=== PATIENT | female | born 1950 | race Caucasian/White ===

== ENCOUNTER 2025-01-31 13:02 | Outpatient (AMB) | payer MEDICARE, OTHER, SELFPAY ==
--- NOTE | 2025-01-31 13:15 | AMB.GYNCLNOT ---
Vital Signs 01/31/25 13:17 Height 1.6 m Height Method Stated Weight 90.378 kg Weight Measurement Method Standing Scale BMI 35.3 BP 118/71 Blood Pressure Source Automatic Cuff Blood Pressure Location Left Upper Arm Position Sitting Respiration 18 Pulse 71 Pulse Source Monitor Temp 97.2 F Temp Source Oral Pulse Oximetry (%) 97 Oxygen Delivery Method Room Air Allergies/Home Meds Allergies & Medications Allergies No Known Allergies Allergy (Verified 01/31/25 13:18) Medication Reconciliation clobetasol 0.05 % topical ointment 1 applic topical QHS 4 weeks #60 grams 02/02/25 [Rx] conjugated estrogens 0.625 mg/gram vaginal cream 0.3125 mg vaginal QDAY #30 grams 02/02/25 [Rx] Intake Visit Data Collection New Patient or Established: New Patient (never been to [facility]) Reason for Visit:: VAGINAL CONCERNS Seen by Clinical Staff ONLY (RN/MA): No Oxyacetylene Cutter Required: No Do You Feel Safe at Home: Yes Authorities Contacted: N/A PCP or OBGYN visit in last 3 months: No Hx Now: No Are you currently on any form of Control: No Pain Present Currently: No Pain Scale Used: Ruiz-Wang/Numerical Pain scale:: 0 Smoking Status Smoking Status: Never smoker 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 History of brachytherapy+ chemo), Yes Hx Hysterectomy (Dr. Goel. 2019. For uterine cancer.), Yes Psychiatric Problems (Anxiety) and Yes Depression / PP Depression Additional Operations/Hospitalizations (year & reason): Parathyroid removal 2016, anxiety on Xanax depression on zoloft Other Relevant History: x 2, 1972 and 1978 Questionnaires Covid-19 Vaccine Questionnaire Has patient been vacinated for Covid-19 Have you been vacinated for Covid-19: Yes PHQ-9 PHQ-2 Over the last 2 weeks, how often have you been bothered by any of the following problems? 1. Little interest or pleasure in doing things: not at all 2. Feeling down, depressed, or hopeless: not at all Total score: 0 PHQ-9 3. Trouble falling or staying asleep, or sleeping too much: Not at all 4. Feeling tired or having little energy: Not at all 5. Poor appetite or overeating: Not at all 6. Feeling bad about yourself - or that you are a failure or have let yourself or your family down: Not at all 7. Trouble concentrating on things, such as reading the newspaper or watching television: Not at all 8. Moving or speaking so slowly that other people could have noticed? - Or the opposite - being so fidgety or restless that you have been moving around a lot more than usual: not at all 9. Thoughts that you would be better off or of hurting yourself in some way: Not at all Total score: 0 If you checked off any problems, how difficult have these problems made it for you to do your work, take care of things at home, or get along with other people?: not difficult at all Source: Developed by Drs. Fredis Willis, Mayra Márquez, Rafal Swartz and colleagues, with an educational sushila from [employer]. Depression screen completed yes Social History Living Situation History Marital Status: Lives With: Family Housing: House Tobacco History Smoking Status: Never smoker Second Hand Smoke Exposure: No Alcohol History Alcohol Intake: Never Domestic Abuse History Do You Feel Safe at Home: Yes History of Present Illness HPI Narrative The patient has a spot outside her vagina that is sore. 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 She cannot have intercourse. She has tried some cream over the counter for this without success. No CHASER HELPER VB. She has a history of uterine CA stage I that recurred. She then had to undergo chemo and XRT. Dr Boss in the [facility] did her hysterectomy. I do not have any records available. Review of Systems Review of Systems Narrative Review of Systems: No CHASER HELPER VB. + Pain in the vagina. Inability to have intercourse. Some itching in the vagina. Exam General General Appearance: alert, in no apparent distress, comfortable, cooperative, healthy appearing, well groomed and other (Appears younger than her stated age) Resp Respiratory exam: Present normal lung sounds bilaterally Card Cardiovascular exam: Present regular rate and normal rhythm Abdominal Abdominal exam: Present soft External exam: Present normal external exam (Hypoestrogenic possible lichen sclerosis abnormal pigmentation) Speculum exam: Present other (No speculum exam could be performed secondary to foreshortened vagina) Bimanual exam: Present other (Foreshortened vagina only admitting an index finger 2 inches) Genitals Female CloseUp:  1. Small ulceration 2. Hyperpigmentation 3. Hyperpigmentation Office Procedures OB Clinic LOC & Office Proc's Nursing/Assessment Patient Status: Initial/New Patient OB Clinic Nursing Assessment: Medication Reconciliation, Update PMH in EMR and Vital Signs OB Clinic Coordination of Care: Complex Care and Chronic Disease 1-5, Education Complex Pt/Fam, Consent,records obtained, informed consent and Staff clarify orders Miscellaneous Interventions: Pelvic no cultures New Patient Charge New Patient Point Assignment: [id number] New Patient Point Charge: ENTERPRISE DATA ARCHITECT Level 3 ([id number]) Assessment & Plan Diagnosis / Problem List (1) History of uterine cancer: Status: Acute Assessment and Plan: Status post hysterectomy BSO chemo and radiation stage I that recurred. I have no records. (2) History of brachytherapy: Status: Acute Assessment and Plan: Patient has a narrow hypoestrogenic scarred foreshortened vagina (3) Vulvar atrophy: Status: Acute Assessment and Plan: Will order estrogen cream and clobetasol. Patient to follow-up in 1 month. (4) Hyperpigmentation of skin: Status: Acute Assessment and Plan: Patient may need biopsy of vulva in 1 month. Advanced Care Planning Advance care planning discussed with:: patient
[2025-01-31 13:17] VITALS: BP 118/71; PULSE 71; RESP 18; TEMP 36.2; O2SAT 97; BMI 35.3
== END 2025-01-31 14:10 | disposition home or self-care (01) ==
LOC: HODSOBC 13:02
PROVIDERS: PCP Nurse Practitioner Family; Referring Provider Nurse Practitioner Family; Supervising Provider Obstetrics & Gynecology; Visit Provider Obstetrics & Gynecology
DX: N90.5 Atrophy of vulva (principal); N89.8 Other specified noninflammatory disorders of vagina; L81.9 Disorder of pigmentation, unspecified; Z85.42 Personal history of malignant neoplasm of other parts of uterus; Z90.710 Acquired absence of both cervix and uterus; Z90.722 Acquired absence of ovaries, bilateral; Z90.79 Acquired absence of other genital organ(s); Z92.3 Personal history of irradiation; Z92.21 Personal history of antineoplastic chemotherapy
CPT/HCPCS: 99203; G0463